=== PATIENT | female | born 1985 | race Two or more races ===

== ENCOUNTER 2017-07-11 11:21 | Emergency (ER) | payer OTHER ==
[~2017-07-11] VITALS: Ht 162.6 cm; Wt 91.6 kg
[2017-07-11] MEDS ORDERED: SYNTHROID200 MCG (11:38)
[2017-07-11] MEDS ORDERED: VITAMIN D5000 UNIT (11:38)
[2017-07-11] MEDS ORDERED: SYNTHROID50 MCG (11:38)
[2017-07-11] MEDS ORDERED: FOLIC ACID1 MG (11:39)
[2017-07-11] MEDS ORDERED: PRENATAL + DHA1 EAC1 (11:39)
== END 2017-07-11 15:55 | disposition home or self-care (01) ==
LOC: ER 11:21
DX: O03.9 Complete or unspecified spontaneous abortion without complication (principal)

== ENCOUNTER 2017-07-19 06:01 | Day surgery (SDC) | payer OTHER ==
[~2017-07-19 06:01] MED LIST: FOLIC ACID1 MG; PRENATAL + DHA1 EAC1; SYNTHROID200 MCG; SYNTHROID50 MCG; VITAMIN D5000 UNIT
== END 2017-07-19 17:00 | disposition home or self-care (01) ==
LOC: CIR.AMB 06:01
DX: O02.1 Missed abortion (principal)